=== PATIENT | male | born 1990 | race Two or more races ===

== ENCOUNTER 2025-05-14 09:45 | Inpatient (IN) | payer OTHER ==
[~2025-05-14] VITALS: Ht 180.3 cm; Wt 181.4 kg
[2025-05-14] MEDS ORDERED: 0.9 % SODIUM CHLORIDE 1,000 ML IV STA (12:46)
[2025-05-14] MEDS ORDERED: KETOROLAC TROMETHAMINE 15 MG VIAL IV STA (12:46)
[2025-05-14] MEDS ORDERED: PIPERACILLIN/TAZOBACTAM SODIUM 3.375 GM in 0.9 % SODIUM CHLORIDE 100 ML IV SCH (12:47)
[2025-05-14] MEDS ORDERED: KETOROLAC TROMETHAMINE 30 MG VIAL ONE (13:23)
[2025-05-14] MEDS ORDERED: PIPERACILLIN/TAZOBACTAM SODIUM 3.375 GM VIAL IV ONE ×2 (13:24→18:18)
[2025-05-14 13:27] LABS: BASO % 0.4 % (0.1-1.2); EOS # 0.11 (0.04-0.54); EOS % 0.7 % (0.7-7.0); HEMATOCRIT 36.6 % (40.1-51.0); HEMOGLOBIN 12.3 g/dL (13.7-17.5); LYMPH % 17.4 % (19.3-53.1); MEAN CORPUSCULAR HEMOGLOBIN 28.2 pg (25.6-32.2); MONO # 1.21 (0.24-0.82); MONO % 8.1 % (4.7-12.5); NEUT # 10.86 (1.56-6.13); NEUT % 72.6 % (34.0-71.1); PLATELET COUNT 312 K/uL (163-369); RED BLOOD COUNT 4.36 M/uL (4.63-6.08); RED CELL DISTRIBUTION WIDTH 13.4 % (11.6-14.4)
[2025-05-14 14:01] LABS: BILIRUBIN TOTAL 0.64 mg/dL (0.3-1.2); CALCIUM 8.9 mg/dL (8.5-10.1); CREATININE SERUM 0.8 mg/dL (0.70-1.30); GFR 112.03; GLOBULINA 3.9 G/DL (2.4-3.5); POTASSIUM 3.81 mEq/L (3.5-5.1); TOTAL PROTEIN 6.9 gm/dL (6.4-8.2)
[2025-05-14 16:42] LABS: PH,URINE 5.5 (5.0-8.0); URINE APPEARANCE Clear; URINE BILIRRUBIN Negative (NEGATIVE); URINE BLOOD Negative; URINE COLOR Yellow; URINE GLUCOSE Negative (NEGATIVE); URINE KETONE Trace (NEGATIVE); URINE LEUKOCYTE Negative; URINE NITRATE Negative; URINE PROTEIN 30 (NEGATIVE); URINE UROBILINOGEN 0.2 E.U./dl
[2025-05-14 16:47] LABS: URINE BACTERIA 6.1 uL (0.0-1933); URINE EPITHELIAL CELLS 7.1 uL (0.0-38.8); URINE WBC 3.9 uL (0.0-23.2)
[2025-05-14 17:03] LABS: URINE CAST 0.29 uL (0.0-1.40); URINE RBC 1.1 uL (0.0-20.8)
[2025-05-14] MEDS ORDERED: CEFTRIAXONE SODIUM 2,000 MG in 0.9 % SODIUM CHLORIDE 100 ML IV SCH (18:41)
[2025-05-14] MEDS ORDERED: VANCOMYCIN HCL 1,000 MG VIAL IV SCH (18:41)
[2025-05-14] MEDS ORDERED: FAMOTIDINE/PF 20 MG in 0.9 % SODIUM CHLORIDE 8 ML IV PUSH SCH (18:41)
[2025-05-14] MEDS ORDERED: LACTOBACILLUS ACIDOPHILUS 1 CAP CAP PO SCH (18:45)
[2025-05-14] MEDS ORDERED: ONDANSETRON HCL 4 MG in 0.9 % SODIUM CHLORIDE 50 ML IV PRN (18:45)
[2025-05-14] MEDS ORDERED: ACETAMINOPHEN 500 MG GEL..CAP PO PRN (18:45)
[2025-05-14] MEDS ORDERED: 0.9 % SODIUM CHLORIDE 1,000 ML IV SCH (18:45)
[2025-05-14 21:23] LABS: INR 1.05; PARTIAL THROMBOPLASTIN TIME 28.7 SECONDS (22.0-34.0); PROTHROMBIN TIME 11.4 SECONDS (9.0-11.5)
[2025-05-14] MEDS ORDERED: VANCOMYCIN HCL 1,000 MG VIAL ONE (22:22)
[2025-05-15 00:57] VITALS: BP 122/77; O2SAT 100
[2025-05-15 07:30] VITALS: BP 101/62; O2SAT 97
[2025-05-15] MEDS ORDERED: ENOXAPARIN SODIUM 40 MG/0.4 ML SYRINGE SUBCUTANEO SCH (09:00)
[2025-05-15] MEDS ORDERED: VANCOMYCIN HCL 1,000 MG VIAL ONE (15:46)
[2025-05-15 16:51] VITALS: BP 161/113; O2SAT 99
[2025-05-15] MEDS ORDERED: ENALAPRILAT DIHYDRATE 1.25 MG/ML VIAL IV PRN (17:00)
[2025-05-15] MEDS ORDERED: MORPHINE SULFATE 4 MG/ML VIAL IV PRN (17:45)
[2025-05-15] MEDS ORDERED: PIPERACILLIN/TAZOBACTAM SODIUM 3.375 GM in 0.9 % SODIUM CHLORIDE 100 ML IV SCH (18:00)
[2025-05-15] MEDS ORDERED: MORPHINE SULFATE 2 MG/ML CARTRIDGE IV PRN (19:00)
[2025-05-15] MEDS ORDERED: LINEZOLID IN DEXTROSE 5% 300 ML IV SCH (21:00)
[2025-05-16] VITALS: BP 118/73; O2SAT 96
[2025-05-16 07:52] LABS: BASO % 0.6 % (0.1-1.2); EOS % 3.1 % (0.7-7.0); HEMATOCRIT 35.8 % (40.1-51.0); HEMOGLOBIN 11.8 g/dL (13.7-17.5); LYMPH # 1.96 (1.18-3.74); LYMPH % 20.4 % (19.3-53.1); MEAN CORPUSCULAR HEMOGLOBIN 28.4 pg (25.6-32.2); MONO # 1.04 (0.24-0.82); MONO % 10.8 % (4.7-12.5); NEUT # 6.08 (1.56-6.13); NEUT % 63.5 % (34.0-71.1); PLATELET COUNT 323 K/uL (163-369); RED BLOOD COUNT 4.16 M/uL (4.63-6.08); RED CELL DISTRIBUTION WIDTH 13.4 % (11.6-14.4)
[2025-05-16 08:27] LABS: ALBUMIN 2.8 gm/dL (3.4-5.0); BILIRUBIN TOTAL 0.58 mg/dL (0.3-1.2); CALCIUM 8.8 mg/dL (8.5-10.1); CREATININE SERUM 0.85 mg/dL (0.70-1.30); GFR 104.46; MAGNESIUM 2.2 mg/dL (1.8-2.4); PHOSPHOROUS 4.9 mg/dL (2.5-4.9); POTASSIUM 4.97 mEq/L (3.5-5.1); TOTAL PROTEIN 5.8 gm/dL (6.4-8.2)
[2025-05-16 08:28] LABS: C-REACTIVE PROTEIN 4.92 MG/DL (0.00-0.29)
[2025-05-16 09:14] VITALS: BP 106/68; O2SAT 96
[2025-05-16] MEDS ORDERED: KETOROLAC TROMETHAMINE 30 MG VIAL IM STA (11:06)
[2025-05-16] MEDS ORDERED: MORPHINE SULFATE 4 MG/ML CARTRIDGE IV PRN (11:07)
[2025-05-16] MEDS ORDERED: CHLORHEXIDINE GLUCONATE 120 ML BOTTLE TOP SCH (21:00)
[2025-05-16] MEDS ORDERED: MUPIROCIN 22 GM OINT..GM TUBE NASAL SCH (21:00)
[2025-05-16 21:27] VITALS: BP 130/64; O2SAT 98
[2025-05-17 01:15] VITALS: BP 134/84; O2SAT 98
[2025-05-17 08:40] VITALS: BP 136/79; O2SAT 97
[2025-05-17] MEDS ORDERED: KETOROLAC TROMETHAMINE 30 MG VIAL IV SCH (13:00)
[2025-05-17 16:00] VITALS: BP 170/90; O2SAT 99
[2025-05-18 01:15] VITALS: BP 132/75; O2SAT 99
[2025-05-18 08:24] VITALS: BP 149/82; O2SAT 99
[2025-05-18 16:00] VITALS: BP 157/93; O2SAT 97
[2025-05-19 00:29] VITALS: BP 137/83; O2SAT 98
[2025-05-19 08:56] VITALS: BP 151/94; O2SAT 98
[2025-05-19 10:31] LABS: BASO % 0.9 % (0.1-1.2); EOS # 0.21 (0.04-0.54); EOS % 2.3 % (0.7-7.0); HEMATOCRIT 36.6 % (40.1-51.0); HEMOGLOBIN 12.2 g/dL (13.7-17.5); LYMPH # 2.26 (1.18-3.74); LYMPH % 24.2 % (19.3-53.1); MEAN CORPUSCULAR HEMOGLOBIN 28.2 pg (25.6-32.2); MONO # 0.85 (0.24-0.82); MONO % 9.1 % (4.7-12.5); NEUT # 5.32 (1.56-6.13); PLATELET COUNT 326 K/uL (163-369); RED BLOOD COUNT 4.32 M/uL (4.63-6.08); RED CELL DISTRIBUTION WIDTH 13.1 % (11.6-14.4)
[2025-05-19 10:53] LABS: BILIRUBIN TOTAL 0.42 mg/dL (0.3-1.2); CALCIUM 9.3 mg/dL (8.5-10.1); CREATININE SERUM 0.76 mg/dL (0.70-1.30); GFR 118.86; GLOBULINA 3.1 G/DL (2.4-3.5); POTASSIUM 4.48 mEq/L (3.5-5.1); TOTAL PROTEIN 6.1 gm/dL (6.4-8.2)
== END 2025-05-19 13:41 | disposition home or self-care (01) | DRG 603 ==
LOC: ER 09:53 → MEDI 19:08 → SURG 19:08 → SURH 05-16 12:52
PROVIDERS: Emergency Medicine; General Practice; Internal Medicine Infectious Disease; ADMIT Student in an Organized Health Care Education/Training Program; ATTEND Student in an Organized Health Care Education/Training Program
PROC: 0J990ZZ Drainage of Buttock Subcutaneous Tissue and Fascia, Open Approach (ICD-10-PCS; 2025-05-14)
PROC: 8E0ZXY6 Isolation (ICD-10-PCS; principal; 2025-05-16)
DX: L02.31 Cutaneous abscess of buttock (principal); L03.317 Cellulitis of buttock; B95.62 Methicillin resistant Staphylococcus aureus infection as the cause of diseases classified elsewhere; G47.33 Obstructive sleep apnea (adult) (pediatric); Z88.1 Allergy status to other antibiotic agents